=== PATIENT | female | born 1935 | race Caucasian/White ===

== ENCOUNTER 2016-10-25 13:57 | Emergency (ER) | payer MEDICARE ==
[~2016-10-25 13:57] MED LIST: ADVAI250I PO; APIX2.5T PO; BUPR300T PO; DIVA250ER PO; DIVA500T8 PO; DOCU1CAP39 PO; DONE10TA14 PO; LEVO88TA2 PO; MEMA28CA PO; NORC7.5T PO; PROT40TA PO; SERT-129 PO; Z.0.COMMODE-3:1; Z.0.CPM; Z.0.WALKERFRONT
[2016-10-25 13:59] VITALS: BP 126/64; PULSE 78; RESP 18; TEMP 97.7; O2SAT 98
--- NOTE | 2016-10-25 14:28 | PD ---
Physical Exam Time Seen by Provider: 14:26 Narrative 80 y/o female with hx nml pressure hydrocephalus. Dizziness, h/a for one month , occasional visual scotomas. Had outpatient CT today at [facility], no report available yet. Saw Dr. Benitez the neurologist last week. Vital signs reviewed. Seen at triage desk. Awaiting bed placement. Data Data Last Documented VS Vital Signs Date Time Temp Pulse Resp B/P Pulse Ox O2 Delivery O2 Flow Rate FiO2 10/25/16 13:59 97.7 78 18 126/64 98 MDM Medical Record Reviewed: Yes Supervised Visit with GRICELDA: No Gilmer Parra Oct 25, 2016 14:28
[2016-10-25 17:09] VITALS: BP 124/58; PULSE 78; RESP 15; O2SAT 100
[2016-10-25] MEDS ORDERED: SODIUM CHLORID 0.9% 500 ML INJ 500 ML IV ONE (17:30)
[2016-10-25 18:04] LABS: AUTOMATED NEUTROPHIL # 5.7 TH/MM3 (1.8-7.7); BASOPHIL # 0.1 TH/MM3 (0-0.2); BASOPHIL % 1.7 % (0.0-2.0); EOSINOPHIL # 0.3 TH/MM3 (0-0.4); EOSINOPHIL % 3.7 % (0.0-4.0); HEMATOCRIT 39.4 % (35.0-46.0); HEMO FLAGS DIFF FINAL; LYMPH % 18.2 % (9.0-44.0); LYMPHOCYTE # 1.6 TH/MM3 (1.0-4.8); MEAN CELL VOLUME 88.1 FL (80.0-100.0); MEAN CORPUSCULAR HEMOGLOBIN 28.7 PG (27.0-34.0); MEAN CORPUSCULAR HGB CONC 32.6 % (32.0-36.0); MONO % 11.1 % (0.0-8.0); NEUT % 65.3 % (16.0-70.0); PLATELET COUNT 298 TH/MM3 (150-450); RED BLOOD COUNT 4.47 MIL/MM3 (4.00-5.30); RED CELL DISTRIBUTION WIDTH 13.4 % (11.6-17.2); WHITE BLOOD COUNT 8.7 TH/MM3 (4.0-11.0)
[2016-10-25 18:23] LABS: BICARBONATE 34.7 MEQ/L (21.0-32.0); POTASSIUM 4.1 MEQ/L (3.5-5.1)
[2016-10-25 18:24] LABS: BLOOD, URINE TRACE (NEG); COMMENT (UR) CULT NOT INDICATED; CULTURE IF INDICATED CULT NOT INDICATED; GLUCOSE,URINE NEG (NEG); KETONE, URINE NEG (NEG); MUCUS URINE FEW /lpf (OCC); NITRITE,URINE NEG (NEG); PH, URINE 5.5 (5.0-8.5); SQUAMOUS EPITHELIAL CELL URINE 8 /hpf (0-5); URINE COLOR YELLOW (YELLW/STRAW)
--- NOTE | 2016-10-25 19:22 | PD ---
HPI Chief Complaint: Neuro Symptoms/ Deficits Time Seen by Provider: 16:11 Travel History International Travel<30 days: No Contact w/Intl Traveler<30days: No Traveled to known affect area: No History of Present Illness HPI 80-year-old female came to the emergency room with history of increasing confusion and weakness and poor by mouth intake as per her wrecking supervisor. Patient has history of hydrocephalus and dementia. She has a ZIPPER SETTER CHAINSTITCH shunt. As per the wrecking supervisor the shunt has been adjusted multiple times by Dr. Ponce who initially put the shunt. Given her symptoms wrecking supervisor called Dr. Ponce yesterday who recommended the patient to be followed up by her neurologist since he did not think this time there was any neurosurgical issue. Her neurologist recommended a CT of her head which was done outpatient yesterday. They don't know the results of it but since her condition did not improve they decided to come to the emergency room. Patient does not appear to be in any significant distress. She has ataxic gait which she was told by Dr. Ponce a Parkinson's-like symptoms related to her hydrocephalus. As per the wrecking supervisor the ataxia has worsened. Patient is not on any parkinsonian medications. She is on dementia and psych medications however. [facility] Past Medical History Narrative Medical List of her home medications reviewed from the nursing note. Arthritis: Yes Asthma: Yes Anxiety: Yes Depression: Yes Heart Rhythm Problems: No Cancer: No Cardiac Catheterization: No Cardiovascular Problems: No High Cholesterol: No Chest Pain: No Congestive Heart Failure: No COPD: No Cerebrovascular Accident: Yes Dementia: Yes Diabetes: No Diminished Hearing: No Endocrine: Yes Gastrointestinal Disorders: Yes (CONSTIPATION) GERD: No Genitourinary: Yes (URGENCY/ INCONTINENCE) Hepatitis: No Hiatal Hernia: No Immune Disorder: No Implanted Vascular Access Dvce: Yes Kidney Stones: No Musculoskeletal: Yes (ARTHRITIS, OSTEOPOROSIS) Neurologic: Yes (HYDROCEPHALUS) Psychiatric: Yes (DEMENTIA, DEPRESSION/ANXIETY) Reproductive: No Respiratory: Yes (ASTHMA) Immunizations Current: No Migraines: No Renal Failure: No Seizures: No Shingles: Yes (X2) Sleep Apnea: No Thyroid Disease: Yes (HYPO) Ulcer: No Tetanus Vaccination: Unknown Influenza Vaccination: No ?: Not Menopausal: Yes : 0 Dilation and Curettage (D&C): Yes (D&C, NODULE REMOVED FROM OVARY) Past Surgical History Abdominal Surgery: Yes (APPY) AICD: No Appendectomy: Yes Arteriovenous Shunt: No Body Medical Devices: (ZIPPER SETTER CHAINSTITCH?) SHUNT Cardiac Surgery: No Ear Surgery: No Endocrine Surgery: No Eye Surgery: No Genitourinary Surgery: No Gynecologic Surgery: No Hysterectomy: No Insulin Pump: No Joint Replacement: Yes (RIGHT HIP, RIGHT KNEE) Neurologic Surgery: Yes (SHUNT PLACED) Oral Surgery: Yes (TONSILLECTOMY) Pacemaker: No Thoracic Surgery: Yes (BREAST BIOPSY) Other Surgery: Yes Social History Alcohol Use: No Tobacco Use: No Substance Use: No Allergies-Medications (Allergen,Severity, Reaction): Coded Allergies: Penicillin (Verified Allergy, Severe, RASH, 10/25/16) Sulfa (Verified Allergy, Severe, HIVES, VOMITING, 10/25/16) Demerol (Verified Allergy, Mild, HALLUCINATIONS, 10/25/16) Cipro (Verified Allergy, Unknown, 10/25/16) Comments List of her allergies reviewed from the nursing note. Reported Meds & Prescriptions Reported Meds & Active Scripts Active Narrative Medication List of her home medications reviewed from the nursing note. Review of Systems Except as stated in HPI: all other systems reviewed are Neg Physical Exam Narrative GENERAL: Awake, alert, no obvious distress SKIN: Focused skin assessment warm/dry. HEAD: Atraumatic. Normocephalic. EYES: Pupils equal and round. No scleral icterus. No injection or drainage. ENT: No nasal bleeding or discharge. Mucous membranes pink and moist. NECK: Trachea midline. No JVD. CARDIOVASCULAR: Regular rate and rhythm. No murmur appreciated. RESPIRATORY: No accessory muscle use. Clear to auscultation. Breath sounds equal bilaterally. GASTROINTESTINAL: Abdomen soft, non-tender, nondistended. Hepatic and splenic margins not palpable. MUSCULOSKELETAL: No obvious deformities. No clubbing. No cyanosis. No edema. NEUROLOGICAL: Awake and alert. No obvious cranial nerve deficits. Motor grossly within normal limits. Normal speech. PSYCHIATRIC: Appropriate mood and affect; insight and judgment normal. Data Data Last Documented VS Vital Signs Date Time Temp Pulse Resp B/P Pulse Ox O2 Delivery O2 Flow Rate FiO2 10/25/16 20:03 97.5 77 20 137/61 99 10/25/16 17:09 Room Air Orders Complete Blood Count With Diff (10/25/16 17:16) Basic Metabolic Panel (Bmp) (10/25/16 17:16) Urinalysis - C+S If Indicated (10/25/16 17:16) Sodium Chlorid 0.9% 500 Ml Inj (Ns 500 M (10/25/16 17:30) Labs Laboratory Tests Test 10/25/16 10/25/16 17:40 17:42 White Blood Count 8.7 TH/MM3 Red Blood Count 4.47 MIL/MM3 Hemoglobin 12.8 GM/DL Hematocrit 39.4 % Mean Corpuscular Volume 88.1 FL Mean Corpuscular Hemoglobin 28.7 PG Mean Corpuscular Hemoglobin 32.6 % Concent Red Cell Distribution Width 13.4 % Platelet Count 298 TH/MM3 Mean Platelet Volume 7.5 FL Neutrophils (%) (Auto) 65.3 % Lymphocytes (%) (Auto) 18.2 % Monocytes (%) (Auto) 11.1 % Eosinophils (%) (Auto) 3.7 % Basophils (%) (Auto) 1.7 % Neutrophils # (Auto) 5.7 TH/MM3 Lymphocytes # (Auto) 1.6 TH/MM3 Monocytes # (Auto) 1.0 TH/MM3 Eosinophils # (Auto) 0.3 TH/MM3 Basophils # (Auto) 0.1 TH/MM3 CBC Comment DIFF FINAL Differential Comment Sodium Level 140 MEQ/L Potassium Level 4.1 MEQ/L Chloride Level 104 MEQ/L Carbon Dioxide Level 34.7 MEQ/L Anion Gap 1 MEQ/L Blood Urea Nitrogen 15 MG/DL Creatinine 0.49 MG/DL Estimat Glomerular Filtration 122 ML/MIN Rate Random Glucose 85 MG/DL Calcium Level 9.1 MG/DL Urine Color YELLOW Urine Turbidity HAZY Urine pH 5.5 Urine Specific [place] 1.021 Urine Protein NEG mg/dL Urine Glucose (UA) NEG mg/dL Urine Ketones NEG mg/dL Urine Occult Blood TRACE Urine Nitrite NEG Urine Bilirubin NEG Urine Urobilinogen LESS THAN 2.0 MG/DL Urine Leukocyte Esterase NEG Urine RBC 1 /hpf Urine WBC 3 /hpf Urine Squamous Epithelial 8 /hpf Cells Urine Mucus FEW /lpf Microscopic Urinalysis Comment CULT NOT INDICATED MDM Medical Decision Making Medical Screen Exam Complete: Yes Emergency Medical Condition: Yes Medical Record Reviewed: Yes Differential Diagnosis UTI, hydrocephalus, elect right abnormality Narrative Course 7:[address] scan report was looked at by me. It was read as unremarkable CT scan of the head. Blood tests are within normal limit and her UA is within normal limits as well. At this point I did not have anything further to pursue and I will discharge her home. I recommended the wrecking supervisor to follow up with her primary care physician at this point. Procedures EKG Prior to Arrival: No Diagnosis Primary Impression: Generalized weakness Additional Impression: Gait abnormality Referrals: Primary Care Physician 2 days Additional Instructions: Please return to the ER if the condition worsens or any other new concerns. Otherwise follow-up with her primary care in couple days. Med/Other Pt SpecificInfo: No Change to Meds Disposition: 01 DISCHARGE HOME Condition: Stable Nicola Cast MD Oct 25, 2016 19:22 Nicola Cast MD Oct 25, 2016 19:22
[2016-10-25 20:03] VITALS: BP 137/61; TEMP 97.5
== END 2016-10-25 20:03 | disposition home or self-care (01) ==
LOC: NEPC 13:57
DX: R53.1 Weakness (principal); R26.9 Unspecified abnormalities of gait and mobility; F03.90 Unspecified dementia, unspecified severity, without behavioral disturbance, psychotic disturbance, mood disturbance, and anxiety; G91.2 (Idiopathic) normal pressure hydrocephalus; Z98.2 Presence of cerebrospinal fluid drainage device
CPT/HCPCS: 80048; 81001; 85025; 96360; 96361; 99284; J7040